=== PATIENT | female | born 1965 | race Caucasian/White ===

== ENCOUNTER 2023-07-31 15:35 | Emergency (ER) | payer OTHER ==
[2023-07-31 17:15] LABS: SARS-CoV-2 NAA Rapid Test Not Detected (NotDetected)
== END 2023-07-31 16:57 | disposition home or self-care (01) ==
LOC: CSHERS 15:35
DX: B34.9 Viral infection, unspecified (principal); R05.9 Cough, unspecified; Z20.822 Contact with and (suspected) exposure to COVID-19
CPT/HCPCS: 99283